=== PATIENT | female | born 1975 | race Caucasian/White ===

== ENCOUNTER 2017-05-28 07:17 | Emergency (ER) | payer MEDICAID, SELFPAY ==
[2017-05-28 07:17] VITALS: BP 186/121; PULSE 94; RESP 22; TEMP 36.6; O2SAT 99; BMI 26.8
--- NOTE | 2017-05-28 07:27 | VDLE_ITS ---
Reason For Study: LEG PAIN Procedure LEFT Exam performed portable in ED. GSV is normal. A preliminary report was called and/or faxed CFV is compressible, spontaneous, phasic, to Dr. Tate. competent, and demonstrates normal augmentation. FV is compressible, spontaneous, phasic, competent and demonstrates normal augmentation. POP V is compressible, spontaneous, phasic, competent and demonstrates normal augmentation. T/P Trunk is compressible. PTV is compressible. LT PerV is compressible. Interpretation Summary There is no evidence of left lower extremity deep vein thrombosis. Left greater saphenous vein appears patent and compressible segmentally. Ordering Physician: Alton Tate Referring Physician: Sadia Reece M.D. Performed By: Blanca Haddad RVT
--- NOTE | 2017-05-28 08:00 | RAD_ITS ---
STUDY: X-RAY - RIGHT KNEE REASON FOR EXAM: Female, 41 years old. Right knee pain. TECHNIQUE: 4 view(s) of the knee. COMPARISON: None. FINDINGS: Normal visualized distal femur. Normal visualized proximal tibia and fibula. Normal proximal tibiofibular articulation. Normal medial femorotibial compartment. Normal lateral femorotibial compartment. Normal patellofemoral articulation. The soft tissue structures are unremarkable. RAD/Knee 4 or More Views IMPRESSION: Normal x-ray examination of the knee. Electronically Signed: Diego Chaney MD at 8:25 EST Tel [phone], Service support ,
[2017-05-28 08:23] VITALS: BP 173/109; PULSE 83; RESP 16; O2SAT 97
[2017-05-28] MEDS: Naproxen 250 MG Tablet 500 MG PO (08:34)
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
== END 2017-05-28 09:35 | disposition home or self-care (01) ==
PROVIDERS: Emergency Provider Emergency Medicine
DX: M25.561 Pain in right knee (principal); G89.29 Other chronic pain; M79.662 Pain in left lower leg; I10 Essential (primary) hypertension; M79.7 Fibromyalgia; Z72.0 Tobacco use
CPT/HCPCS: 73564; 93971; 99282

== ENCOUNTER → 2017-11-19 17:33 | Outpatient (CLI) | payer MEDICAID, SELFPAY ==
--- NOTE | 2017-11-19 17:43 | RAD_ITS ---
STUDY: X-RAY - LUMBAR SPINE REASON FOR EXAM: Female, 42 years old. Back pain radiating into left hip TECHNIQUE: 2 view(s) of the lumbar spine were obtained. COMPARISON: None FINDINGS: Normal lumbar lordosis. There is no substantial scoliosis. There is a grade 2 anterolisthesis of L5 relative to S1. There is multilevel endplate spondylosis of the lumbar vertebrae. There is multi-level degenerative disc disease with multi-level disc space narrowing. The soft tissue structures are unremarkable. RAD/Lumbar Spine 2 or 3 Views IMPRESSION: 1. Grade 2 anterolisthesis of L5 relative to S1. 2. Multilevel endplate spondylosis and disc space narrowing. Electronically Signed: Guille Rosado MD at 17:42 EDT , Service support ,
--- NOTE | 2017-11-19 17:43 | RAD_ITS ---
STUDY: X-RAY - SACRUM/COCCYX REASON FOR EXAM: Female, 42 years old. Back pain radiating to left hip TECHNIQUE: 3 view(s) of the sacrum and coccyx were obtained. COMPARISON: None. FINDINGS: Normal bilateral sacroiliac joints. Normal visualized sacral ala and fused sacral bodies. Normal sacrococcygeal junction with a normal angulation. Normal coccygeal segments. The presacral soft tissue structures are unremarkable. RAD/Sacrum-Coccyx min 2 Views IMPRESSION: Normal x-rays of the sacrum and coccyx. Electronically Signed: Guille Rosado MD at 17:36 EDT , Service support ,
--- NOTE | 2017-11-19 17:43 | RAD_ITS ---
STUDY: X-RAY - PELVIS AND LEFT HIP REASON FOR EXAM: Female, 42 years old. Back pain radiating to left hip TECHNIQUE: Radiological exam, hip, unilateral, with pelvis when performed; 2 or 3 views. COMPARISON: None. FINDINGS: There is a non-specific bowel gas pattern. Normal visualized soft tissue structures. Normal bilateral iliac wings, sacroiliac joints and visualized sacrum. Normal bilateral superior and inferior pubic rami. Normal pubic symphysis. Normal bilateral ischial tuberosities. Normal visualized femoral head. Normal acetabulum. Normal hip joint. RAD/Hip 2-3 Views with Pelvis IMPRESSION: Normal x-ray examination of the pelvis and hip. Electronically Signed: Guille Rosado MD at 16:34 EDT , Service support ,
== END ==
PROVIDERS: Visit Provider Nurse Practitioner Family
DX: M25.552 Pain in left hip (principal); M43.17 Spondylolisthesis, lumbosacral region; M48.061 Spinal stenosis, lumbar region without neurogenic claudication
CPT/HCPCS: 72100; 72220; 73502